=== PATIENT | male | born 1950 | race Caucasian/White ===

== ENCOUNTER → 2024-06-19 | Outpatient (REF) | payer MEDICARE, BC ==
[~2024-06-19] MED LIST: ASPIRIN325 MG PO; ATENOLOL50 MG PO; CALCIUM 500+D1 EACH PO; CLONIDINE HCL0.1 MG PO; GLUCOSAMINE1000 MG PO; LANTUS100 UNITS/ SQ; LASIX20 MG PO; MULTIVITAMINS1 EAC7 PO; NOVOLOG MI100 UNITS/ SQ; PIOGLITAZONE HC45 MG PO; PRAVASTATIN SOD40 MG PO
== END ==
LOC: RAD 10:00
PROVIDERS: ATTEND Optometrist
DX: H25.13 Age-related nuclear cataract, bilateral (principal); E11.3391 Type 2 diabetes mellitus with moderate nonproliferative diabetic retinopathy without macular edema, right eye; H35.61 Retinal hemorrhage, right eye; H43.823 Vitreomacular adhesion, bilateral
CPT/HCPCS: 93306; 93880